=== PATIENT | male | born 1965 | race Asian ===

== ENCOUNTER 2017-03-19 17:20 | Inpatient (IN) | payer OTHER ==
--- NOTE | ~2017-03-19 | CO ---
Unit #: [id number] #: [id number] Patient: PARISH HANNA [id number] [address] [address] [id number] I MR#: [id number] NAME: PARISH HANNA ROOM: 09917 Age: 51 Sex: M Admission Date: 03/19/2017 : 1965 Attending Physician: Poornima Singh M.D. Primary Care Physician: Judah Trujillo Consultation Date: 03/20/2017 CONSULTATION REPORT ADMITTING PHYSICIAN Dr. Echevarria. CONSULTING PHYSICIAN Dr. Solo Conway. REASON FOR CONSULTATION Right septic knee. HISTORY OF PRESENT ILLNESS The patient is a pleasant 51-year-old male who we were asked to see in consultation by Dr. Echevarria for right knee infection. The patient reports this has been going on for two days. The patient has not suffered any trauma. The patient did have a left knee infection back in 2013, which was washed out by Dr. Beal. The patient admits the pain in his right knee is a 10 on a scale of 1-10. The patient struggles with ambulation. The patient denies any numbness, tingling, fever, or chills. PAST MEDICAL HISTORY/SURGICAL HISTORY History of left knee arthroscopic I and D by Dr. Beal. CURRENT MEDICATIONS None. ALLERGIES No known drug allergies. Not allergic to latex. SOCIAL HISTORY Admits to tobacco, occasional alcohol. FAMILY HISTORY Noncontributory. REVIEW OF SYSTEMS GENERAL: He denies any fever or chills. HEENT: Denies any double vision or blurred vision. LUNGS: He denies any shortness of air or chronic cough. CARDIOVASCULAR: Denies any chest pain, irregular heart beat. ABDOMEN: Denies nausea, vomiting. MUSCULOSKELETAL: Admits to right knee pain. EXTREMITIES: Denies any clubbing, cyanosis but admits to large effusion in his right knee. NEUROLOGIC: Denies any numbness or tingling. Unit #: [id number] #: [id number] Patient: PARISH HANNA PHYSICAL EXAMINATION GENERAL: The patient is well developed, well nourished, no acute distress. He does complain of right knee pain. VITAL SIGNS: His temperature is 97.5, blood pressure 128/87, heart rate 71 and regular, respirations 14. HEENT: Normocephalic and atraumatic. PERRLA. Extraocular movements intact. Conjunctivae clear. NECK: Supple. No thyromegaly. LUNGS: Clear to auscultation. No accessory muscle use. Equal expansion bilaterally. CARDIOVASCULAR: S1, S2. ABDOMEN: Soft, nontender, nondistended. Positive bowel sounds. MUSCULOSKELETAL: Gait not appreciated. Examination of the patient's right knee reveals he did have what appeared to be a large effusion. He did have decreased range of motion. There were no masses appreciated. There was some erythema and edema. His medial and lateral ligaments were stable. His ACL and PCL tests were normal. EXTREMITIES: No clubbing, cyanosis, edema other than right knee effusion. SKIN: No rash, lesions, or ulcers. NEUROLOGIC: Limited orthopedic exam. Cranial nerves II-XII grossly intact. DIAGNOSTIC STUDIES LABORATORY: The aspiration from his right knee did show 32,548 total cell count. Eighty seven percent of that was neutrophils. His uric acid was 7.3. Sodium 137, potassium 3.8, chloride 102, CO2 is 22, BUN 15, creatinine 0.9, glucose 137. WBC 11.5, hemoglobin 13.8. Blood cultures so far were negative. IMAGING: X-rays of the patient's right knee did show a large suprapatellar bursa effusion. ASSESSMENT Right knee infection. PLAN The patient has been started on IV antibiotics. Will wait and see how this works for one day. Dr. Callahan or Dr. Donato will review and see the patient tomorrow. Will keep the patient NPO after midnight. Will go ahead and get a consent for a right knee arthroscopic incision and drainage by either Dr. Donato or Dr. Callahan. Will make further recommendations. Dictated by... Vijay Deras P.A.-C- for Will Guzman TD: 03/20/2017 11:52 JOB #: [id number] Unit #: [id number] #: [id number] Patient: PARISH HANNA CONSULTATION REPORT Page 1 of 1 X X CONSULTATION REPORT
--- NOTE | ~2017-03-19 | OR ---
Unit #: [id number] #: [id number] Patient: PARISH HANNA [id number] [address] [address] [id number] Vera MR#: [id number] NAME: PARISH HANNA ROOM: 229 Date of Procedure: 03/22/2017 Admission Date: 03/20/2017 Surgeon: Bill Donato M.D. : 1965 Attending Physician: Poornima Singh M.D. Primary Care Physician: Judah Trujillo OPERATIVE REPORT PREOPERATIVE DIAGNOSIS Right septic knee arthritis. POSTOPERATIVE DIAGNOSIS Right septic knee arthritis. PROCEDURE PERFORMED Right arthroscopic knee incision and drainage. GOLF COURSE ARCHITECT None. ANESTHESIA General with LMA. COMPLICATIONS None. SPECIMENS Culture swabs sent from the right knee fluid. DRAINS Small Hemovac. SURGICAL IMPLANTS None. INDICATION FOR PROCEDURE Mr. Hanna is a 51-year-old male with history of left septic knee arthritis who presented with right knee swelling, pain, erythema, elevated white count. Aspiration had been performed with elevated white count noted from the right knee. Crystals negative and cultures negative as well. However, the patient was on antibiotics. Due to increasing white count and no improvement in symptoms, it was felt that surgical I and D may prevent complications of septic arthritis. Risks and benefits discussed with the patient over the phone with the clinical courier on the morning of 03/22/2017 before surgery. The patient wished to proceed with surgical intervention after discussion. We will plan for a right knee arthroscopic I and D. Risks include, but not limited to infection, bleeding, nerve injury, blood clots, risks associated with anesthesia, need for further surgery, persistent pain, and possibly . Unit #: [id number] #: [id number] Patient: PARISH HANNA DESCRIPTION OF PROCEDURE On 03/22/2017, the patient was seen in the preoperative holding area, where his surgical site was marked. The patient was on scheduled antibiotics. The patient was taken to the operating room and provided general anesthesia. Right lower extremity was prepped and draped in typical sterile fashion. Time-out performed confirming the correct surgical site and procedure. At this point, an anterolateral portal was created with an 11-blade. A blunt trocar was carefully inserted in the knee. Approximately 50 mL of joint fluid removed and placed in a sterile specimen cup. Culture swabs were sent from this. Next, the arthroscope was inserted in the knee. A superolateral portal was created into the suprapatellar pouch. A drain was placed there. Approximately 6 L of normal saline containing bacitracin was pulsed through the knee. There was some synovitis noted as well as what appeared to be calcifications in the joint. This certainly could be secondary to gout. Articular cartilage was intact. After the fluid had been pulsed through the wound, a small Hemovac drain was placed through the superolateral wound and into the joint. The 2 wounds were closed with 3-0 nylon suture, Xeroform, 4x4s, ABD, cast padding, Dm bandage were placed. The patient was subsequently awakened from general anesthesia in stable condition and taken to PACU postoperatively. POSTOPERATIVE PLAN We will check cultures. He will be weightbearing as tolerated. He likely will need to be treated for gout if symptoms do not improve. Dictated by... Bill Donato M.D. SUSY/sherin TD: 03/23/2017 02:08 JOB #: [id number] OPERATIVE REPORT Page 1 of 1 X X PROCEDURE OPERATIVE NOTE
--- NOTE | ~2017-03-19 | HP ---
Unit #: [id number] #: [id number] Patient: PARISH HANNA [id number] [address] [place], [place] [address] [id number] I MR#: [id number] NAME: PARISH HANNA ROOM: 229 Age: 51 Sex: M Admission Date: 03/20/2017 : 1965 Attending Physician: Poornima Singh M.D. Primary Care Physician: Judah Trujillo M.D. HISTORY AND PHYSICAL CHIEF COMPLAINT Left knee pain. HISTORY OF PRESENT ILLNESS Patient is a 51-year-old Latvian male who presented to the emergency department due to right knee pain. Patient states that pain has been ongoing for two weeks and rates pain as 10/10, unable to ambulate. Patient states that there is also redness with the pain, denied fevers or chills with this pain. Patient states back in 2013 he had similar episode of pain in the left knee where it had required incision and drainage and four weeks of IV antibiotics. Patient states that since then he had no problem with the left knee except some crepitus with ambulation and the right knee pain started two days prior to admission. In the emergency department patient was evaluated. Chem-7 was unremarkable. CBC with slightly elevated white count of 11,500. Patient was seen by Orthopedics who had suggested to have joint aspiration. Currently the synovial fluid appears cloudy with too numerous to count white blood cells. Patient has been afebrile. Vitals have been stable. Patient is started on empiric antibiotic with vancomycin and Rocephin. The following day after being evaluated by Orthopedics, it was felt by Orthopedics that patient currently does not need incision and drainage of the knee and will continue with empiric antibiotics and continue to monitor. Patient also had other lab workup including a CRP which is slightly elevated at 3.1, sed rate was 21, a uric acid level of 7.3. PAST MEDICAL HISTORY None. PAST SURGICAL HISTORY Left knee incision and drainage in 2003 for septic right knee arthritis. CURRENT MEDICATIONS None. ALLERGIES No known drug allergies. SOCIAL HISTORY Patient admits to smoking approximately one pack every other day. Patient states that he drinks beer occasionally but states that he never binge drinks. Patient currently is unemployed. Patient admits to inhaling marijuana but states that he has not done so in the past two years, denied any IV drug use. Unit #: [id number] #: [id number] Patient: PARISH HANNA FAMILY HISTORY Family history is noncontributory. REVIEW OF SYSTEMS Twelve review of systems were reviewed. Patient reports pain and redness in the left knee and worsened with mobility, otherwise the symptom review is negative. PHYSICAL EXAMINATION GENERAL: Patient is a well-developed well-nourished male with significant pain in the right knee with movement. VITAL SIGNS: Pulse of 71, respiratory rate of 14, blood pressure is 128/87, oxygen is 98% on room air. HEAD, EYES, EARS, NOSE AND THROAT: Clear. PERRLA. LUNGS: Clear to auscultation bilaterally. HEART: Regular rate and rhythm. ABDOMEN: Nondistended. Nontender. No guarding. No rebound. MUSCULOSKELETAL: Patient had full range of motion on the left knee but significant pain with slight abduction and adduction on the right knee. The patient has full range of motion in the hip, full range of motion in the bilateral feet, dorsiflexion and plantar flexion and extension. DIAGNOSTIC STUDIES IMAGING: Patient had a three-view x-ray of the knee. Impression: Large suprapatellar bursa effusion without lipohemarthrosis, fracture or loose body. No joint space loss seen. LABORATORY: BMP: Glucose 137, BUN 15, creatinine 0.9, sodium 134, potassium 3.8, chloride 102, CO2 22, calcium 8.7, uric acid level 7.3. CBC with WBC of 11.5, RBC 4.54, hemoglobin 13.8, hematocrit is 41.2, MCV is 90.7, MCH is 30.4, MCHC is 33.5, RDW 13.0, platelets 251 and MPV 8.7. Please note that patient's uric acid levels is 7.3. C-reactive protein is 3.1. Sed rate is 21. ASSESSMENT AND PLAN 1. Right septic knee: Is being followed by Orthopedic Surgery. No surgery per their assessment at this time. Will continue with IV antibiotic. Follow up on synovial fluid and blood culture. 2. Acute gouty arthritis: Will be treating with colchicine and pain medicine if needed. 3. History of left-sided knee septic arthritis in 2013. 4. Tobacco usage: Suggest cessation. 5. Low back pain with previous history of illicit drug use: Will be assessing an MRI of his back to rule out any abscess. Dictated by Gabe Barton PA-C for Will Mondragon/xu TD: 03/20/2017 17:02 JOB #: [id number] Unit #: [id number] #: [id number] Patient: PARISH HANNA HISTORY AND PHYSICAL Page 1 of 1 X X HISTORY AND PHYSICAL
--- NOTE | ~2017-03-19 | CO ---
Unit #: [id number] #: [id number] Patient: PARISH HANNA [id number] [address] [place], [place] [address] [id number] I MR#: [id number] NAME: PARISH HANNA ROOM: 229 Age: 51 Sex: M Admission Date: 03/20/2017 : 1965 Attending Physician: Poornima Singh M.D. Primary Care Physician: Judah Trujillo Consultation Date: 03/22/2017 CONSULTATION REPORT REASON FOR CONSULTATION Septic left knee. HISTORY OF PRESENT ILLNESS This is a 51-year-old male who came to the emergency room due to right knee pain. Patient reports he had difficulty walking with some associated swelling; however, he denied any fever or chills and reports that he is doing fine. Patient's workup included and arthrocentesis with approximately 34,000 nucleated cells, 87% of which were neutrophils with no crystals seen. Patient's is status post arthroscopic I and D today and cultures are currently pending and patient is up walking around with minimal difficulty. He is, however, using crutches. Patient is on vancomycin and Rocephin and ID was asked to evaluate for possible septic knee. PAST MEDICAL HISTORY None; however, we did see the patient several years ago for a similar incident on the opposite side of the knee. ALLERGIES No known allergies. MEDICATIONS Vancomycin and Rocephin. For other medications, please refer to patient's MAR. SOCIAL HISTORY Positive tobacco. Occasional alcohol. No IV drug abuse. REVIEW OF SYSTEMS No fever or chills. No shortness of breath. No chest pain, nausea, vomiting, or diarrhea. He reports minimal pain in his right knee at this time. PHYSICAL EXAMINATION VITAL SIGNS: Temperature is 98.2 with a T max. of 100, pulse is 69, blood pressure 121/77, and respiratory rate is 18. GENERAL: This no apparent distress male was resting in the bed comfortably after he was walking down the hallway with the use of his crutches. HEENT: His pupils are equal. NECK: Supple. CARDIOVASCULAR: S1 and S2 regular rate and rhythm. PULMONARY: Clear to auscultation bilaterally with no wheezes or rhonchi Unit #: [id number] #: [id number] Patient: PARISH HANNA noted. ABDOMEN: Positive bowel sounds, soft, and nontender. EXTREMITIES: Right knee is currently in an OR dressing with a ABRAHAN drain in place. There is no significant edema and there is positive warmth in his lower extremities. DIAGNOSTIC STUDIES LABORATORY: BUN 11, creatinine 0.9, sodium 131, potassium 3.9, chloride 102, CO2 22, and bilirubin 0.4. LFTs were not done this admission. Fluid culture from the knee showed 32,548 nucleated cells with 87% neutrophils and no crystals seen on exam. White blood cell count 8.6, which is improved from 13.7; hemoglobin 14.2; hematocrit 42.1; and platelets 277. Knee cultures currently pending from today. Synovial fluid from the 4th is negative. Blood cultures are currently negative to date. IMPRESSION This is a 51-year-old male who presented with knee pain for several days, status post arthrocentesis at the bedside several days ago with negative cultures, but negative crystals also. Analysis was not consistent with septic arthritis. Patient is now status post arthroscopic I and D. Cultures are currently pending. At this time, suspicion for gout is high; however, until cultures are known, will continue vanc and ceftriaxone. Thank you for allowing us to participate in the care of this patient. Further recommendations to follow pending patient's clinical course. Dictated by... Remington AguileraPChepeRChepeN. for Will Hernandez/emily TD: 03/22/2017 10:50 JOB #: [id number] CONSULTATION REPORT Page 1 of 1 X X CONSULTATION REPORT
--- NOTE | ~2017-03-19 | A ---
[facility] Nutrition Therapy DATE: 03/22/17 Patient: PARISH HANNA Physician: MAIK Address: [address] [place] [address] ROAD Room/Bed: [address] [place] [address], Zip: [place] [address] Admit Date: 03/20/17 Date of : [birth year] Height: 5 2 Weight: 138 62.59 NUTRITIONAL ASSESSMENT: REASON: CONSULT RE: GOUT DIET EDUCATION HT: 5'2", WT: 137# (62 KG), BMI: 25.1 RD PROVIDED WRITTEN AND VERBAL GOUT DIET EDUCATION. OF NOTE, PT IS VIATNAMESE, RD COMMUNICATED INFORMATION VIA PHONE SOC ANALYST AND PROVIDED WRITTEN VIATNAMESE DIET EDUCATION. RD EXPLAINED IMPORTANCE OF FOLLOWING SPECIFIC DIET PLAN WELL LISTED FOODS TO AVOID/LIMIT AND FOODS TO EAT MORE OFTEN. PT DEMONSTRATED UNDERSTANDING OF THE TOPIC. PT REPORTED NO DIET QUESTIONS AT THIS TIME. RD TO REMAIN AVAILABLE FOR FURTHER QUESTIONS. RECOMMENDATIONS: 1. RE-CONSULT RD IF FURTHER DIET EDUCATION REQUESTED RD WILL F/U PER PROTOCOL Surinder Matt, MS, RD, LD [facility] cc: client file
--- NOTE | ~2017-03-19 | CR173 ---
[facility] A Service of [facility] & [facility] RADIOLOGY TEXT RESULTS PATIENT: PARISH HANNA LOCATION: CEDOF : [birth year] UNIT #: [id number] AGE: [address]: Poornima Singh MD SEX: M ORDER DR: [id number] [facility] [address] [facility]. [place], [place] [address] [id number] I MR#: [id number] Acc #: [id number] NAME: PARISH HANNA : 1965 SEX: M STUDY DATE/TIME: 03/19/2017 19:58 UNIT: CEDOF ROOM: 14507 STUDY DESCRIPTION: CR Knee 3 Views Rt Attending Physician: Mal Echevarria M.D. Ordering Physician: Ishan Chun Aprn Primary Care Physician: Judah Trujillo MEDICAL IMAGING REPORT This report is preliminary unless electronic signature is present EXAM Right knee 3 views 03/19/2017 1958 hours HISTORY 51-year-old man with anterior right knee pain for 2 days. No known injury. COMPARISON None. FINDINGS AP, lateral and sunrise views suggest a large suprapatellar bursa effusion without lipohemarthrosis. Joint space appears normal. There is no fracture or loose body. IMPRESSION Large suprapatellar bursa effusion without lipohemarthrosis, fracture or loose body. No joint space loss seen. Dictated by... Drea Gomez M.D. THIS IS AN ELECTRONICALLY VERIFIED REPORT Drea Gomez M.D. at 03/20/2017 8:49 AM NELA/flip TD: 03/20/2017 07:48 JOB #: [id number] MEDICAL IMAGING REPORT Page 1 of 1 COPY
--- NOTE | ~2017-03-19 | MR112 ---
[facility] A Service of [facility] & [facility] RADIOLOGY TEXT RESULTS PATIENT: PARISH HANNA LOCATION: C2A 229-01 : [birth year] UNIT #: [id number] AGE: [address]: Poornima Singh MD SEX: M ORDER DR: [id number] [facility] [address] [facility]. [place], [place] [address] [id number] I MR#: [id number] Acc #: [id number] NAME: PARISH HANNA : 1965 SEX: M STUDY DATE/TIME: 03/20/2017 15:18 UNIT: [facility] ROOM: 229 STUDY DESCRIPTION: MR Lumbar WWo Contrast Attending Physician: Poornima Singh M.D. Ordering Physician: Judah Trujillo M.D. Primary Care Physician: Judah Trujillo M.D. MRI CENTER REPORT This report is preliminary unless electronic signature is present. EXAM Lumbar spine MRI with without HISTORY Low-back pain for 2-3 days, prior IV drug use and knee infection, septic arthritis in the knee. Please evaluate for possible lumbar spine infection. No history of cancer or surgery. No history of trauma. TECHNIQUE MRI of the lumbar spine performed prior to and following intravenous administration of 12 mL of MultiHance. COMPARISON STUDIES There is no previous MRI of the lumbar spine. There is a comparison plain film series from 11/18/2015. FINDINGS Spine numbered assuming a very hypoplastic S1-2 intervertebral disc. Sagittal alignment is normal. Bone marrow signal intensity is normal. There is subtle disc desiccation at L2-3 and L5-S1. There is no evidence for diskitis. The conus medullaris terminates at L1 level and is normal. There is nothing to suggest osteomyelitis. There is nothing to suggest an epidural abscess. At L1-2, there is no significant abnormality. At L2-3, there is a minor concentric disc bulge with small Schmorl nodes but there is no canal stenosis. No significant foraminal impingement. At L3-4, there is no significant abnormality. At L4-5, there is minimal posterior disc bulge. Mild effacement of the STS. [facility] A Service of [facility] & [facility] RADIOLOGY TEXT RESULTS PATIENT: PARISH HANNA LOCATION: A 229-01 : [birth year] UNIT #: [id number] AGE: [address]: Poornima Singh MD SEX: M ORDER DR: anterior thecal sac. No canal stenosis. There is mild bilateral inferior foraminal narrowing. At L5-S1, there is a mild broad-based posterior disc bulge with mild effacement of the anterior thecal sac. Mild mass effect on the bilateral-lateral recesses but no significant central canal stenosis. There is mild bilateral foraminal narrowing. Partly seen is a likely tiny of 4 mm left renal cyst. Mild arthritis seen visualized bilateral sacroiliac joints. Following contrast administration, there is no pathologic intracanicular enhancement. There is nothing to suggest arachnoiditis. IMPRESSION 1. Nothing to suggest diskitis, osteomyelitis or epidural abscess lumbar spine. 2. Mild lumbar degenerative changes but no lumbar canal stenosis. Mild foraminal narrowing detailed above. 3. Partially seen is some mild arthritis in the sacroiliac joints. STAT * RESULT Dictated by... Dana Rich M.D. THIS IS AN ELECTRONICALLY VERIFIED REPORT Dana Rich M.D. at 03/20/2017 5:30 PM Neal TD: 03/20/2017 16:43 JOB #: [id number] MRI CENTER REPORT Page 1 of 1 COPY
--- NOTE | ~2017-03-19 | DS ---
Unit #: [id number] #: [id number] Patient: PARISH HANNA [id number] [address] [place], [place] [address] [id number] MR#: [id number] NAME: PARISH HANNA ROOM: 229 Age: 51 Sex: M Admission Date: 03/20/2017 : 1965 Discharge Date: 03/23/2017 Attending Physician: Poornima Singh M.D. Primary Care Physician: Judah Trujillo DISCHARGE SUMMARY DISCHARGE DIAGNOSES 1. Septic gouty arthritis of the right knee. 2. 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 3. Tobacco abuse. 4. History of remote substance abuse, denied intravenous drug use. CONSULTANTS 1. Orthopedic surgery - Dr. Conway and Dr. Donato. 2. Infectious Disease - Dr. Meneses. PROCEDURES The patient had a right knee arthroscopic incision and drainage by Dr. Donato on 03/22/17 and had a drain placed in there. Per Dr. Donato's note, the synovitis was noted to be calcified in the joint. Could certainly be secondary to gout. Articular cartilage was intact. IMAGING The patient had three view knee x-ray done on 03/19/17. Impression - large suprapatellar bursa effusion without lipohemarthrosis, fracture or loose body. No joint space loss seen. Lumbar MRI with and without contrast on 03/20/17. Impression - nothing to suggest discitis, osteomyelitis or epidural abscess of lumbar spine. Mild lumbar degenerative changes but no lumbar canal stenosis. Mild foraminal narrowing detailed above. Partially seen is some mild arthritis in the sacroiliac joints. LABORATORY BMP - glucose 91, BUN 10, creatinine 0.8, sodium 136, potassium 3.8, chloride 105, CO2 24, calcium 8.9. CBC with WBC of 5.4, RBC 4.3, hemoglobin 13.2, hematocrit 39.3, MCV 91.4, MCH 30.7, MCHC 33.6, RDW 12.5, platelets 272, MPV 8.9. HOSPITAL COURSE The patient is a 51-year-old, Afghan predominantly speaking, male who does speak some [place], who presented to the emergency department due to left knee pain. The patient states that symptoms started about two weeks prior to admission and rates it as 10 out of 10. It was debilitating and unable to ambulate on it and had to use crutches. The patient had the same symptoms on the left knee in 2014 where he had undergone arthroscopy of that knee and required four weeks of IV antibiotics following that. In the emergency department, workup includes a slightly elevated white count Unit #: [id number] #: [id number] Patient: CYNDI,PARISH of 11,500. He was seen by orthopedic surgery and had undergone joint aspiration of the knee in the emergency department where synovial fluid reveals cloudy with too numerous to count blood cells. CRP was elevated at 3.1, sed rate was 21. Uric acid level was slightly elevated at 7.3. Orthopedic surgery had recommended a onetime dose of colchicine that was given in the emergency department and had also recommended to continue with IV antibiotic. At my evaluation the next day, the patient still had severe debilitating pain in his left knee. Also, he tells me that the swelling had much reduced. On review of the synovial fluid, he had a 32,000 count which was less than his 52,000 back in 2014. When asked for crystal exam, they feel that there were no crystals seen. Therefore, have continued patient with IV antibiotics for possible septic joint. Infectious disease was asked to see this patient in consultation. At hospital day #2, the patient had low grade fever of 100.0 and an elevated white blood count to the level of 13,700. Therefore, orthopedic surgery had decided to dyspnea on exertion a diagnostic arthroscopy of the right knee and, per Dr. Donato's dictated report, there was truly no purulent discharge seen in the knee and that there were marked calcifications. (1) history - patient does not eat red meat but does like to eat salted fish as well as salted crabs. He does admit to consuming beer every now and then as well. With this finding from OR as well as patient's history and the fact that there is no growth on blood, bacteria count is not exceptionally high and no growth in the body fluid at this time. Therefore, it is felt by infectious disease and myself that patient likely has gout per history and current workup right now. Therefore, we have decided to stop antibiotics and to treat patient for gout. The patient was discharged home in stable condition. It was stressed by myself and infectious disease to return to the emergency department for re-evaluation should he have a fever of 100.4, severe pain to the left knee or any additional drainage or swelling to the knee. The patient voiced understanding. The patient does not have a primary care physician that he is following at this time. Therefore, I have arranged followup with our [facility] at 10:00 on 03/30. That is next . Will also be following patient's synovial fluid for any culture growth. If no further growth is (2) and no other overt signs of infection, patient will continue treatment of gout and will require no other further antibiotics. If this patient does present with similar symptoms in the future, my recommendation is to treat patient for gout instead of infectious septic arthritis. DISPOSITION Stable to home. FOLLOWUP 1. Follow up with the [facility] clinic on March 30 at 10:00. 2. Follow up with orthopedic surgery in ten days. Patient was given instructions to shower and use weight bearing as tolerated. DISCHARGE MEDICATIONS 1. Tylenol 650 mg as needed for mild pain. 2. Solu-Medrol Dosepak was given. 3. Colchicine 1.2 mg orally on the first day, then 0.6 mg orally for the next four subsequent days following that. Prescription for 30 days Unit #: [id number] #: [id number] Patient: PARISH HANNA was given. Please note - this dictation took 45 minutes including patient education and to coordinate care. Dictated by... Gabe Barton PA-C for Will Mondragon/ammy TD: 03/25/2017 14:20 JOB #: [id number] DISCHARGE SUMMARY Page 1 of 1 X X DISCHARGE SUMMARY
[~2017-03-19 17:20] MED LIST: HYDROCODON-ACE1 EAC9 PO; ROCEPHIN IV; VANCOMYCIN1.25 GM/25 IV
[2017-03-19 20:12] LABS: BASOPHIL% 0.3 % (0-2.5); EOSINOPHIL# 0.2 X10e3 (0-0.7); EOSINOPHIL% 1.5 % (0.0-7.0); HEMATOCRIT 41.2 % (38.0-50.0); HEMOGLOBIN 13.8 gm/dL (13.0-16.0); LYMPHOCYTE# 2.1 X10e3 (1.0-3.5); LYMPHOCYTE% 18.6 % (17.0-45.0); MEAN CELL VOLUME 90.7 FL (83-96); MEAN CORPUSCULAR HEMOGLOBIN 30.4 PG (28-34); MEAN CORPUSCULAR HGB CONC 33.5 g/dL (30-36); MEAN PLATELET VOLUME 8.7 FL (6.5-11.5); MONOCYTE# 1.5 X10e3 (0-1.0); MONOCYTE% 12.7 % (3.0-12.0); NEUTROPHIL# 7.7 X10e3 (1.5-7.1); NEUTROPHIL% 66.9 % (40-75); PLATELET COUNT 251 X10e3 (140-420); RED BLOOD COUNT 4.54 X10e (3.90-5.60); WHITE BLOOD COUNT 11.5 X10e3 (4.0-10.5)
[2017-03-19 20:15] LABS: DIFF IND NO
[2017-03-20 01:01] LABS: PROTEIN, BODY FLUID 3.8 gm/dL
[2017-03-20 01:31] LABS: BF CRYSTAL EXAM NO CRYSTALS SEEN; BF TOTAL NUCLEATED CELL COUNT 32548 CMM (0-100); BODY FLUID APPEARANCE CLOUDY; BODY FLUID RBC <10000 CMM; BODY FLUID SOURCE SYNOVIAL
[2017-03-20 02:17] LABS: BUN/CREATININE RATIO 16.66; CALCIUM SERUM 8.7 mg/dL (8.4-10.2); CREATININE SERUM 0.9 mg/dL (0.6-1.4); GLOM FILT RATE Estimated 98.5 mL/min (>60); POTASSIUM 3.8 mmol/L (3.5-5.1)
[2017-03-20 13:40] LABS: BASOPHIL% 0.4 % (0-2.5); EOSINOPHIL# 0.1 X10e3 (0-0.7); EOSINOPHIL% 0.8 % (0.0-7.0); HEMATOCRIT 45.5 % (38.0-50.0); HEMOGLOBIN 15.4 gm/dL (13.0-16.0); LYMPHOCYTE# 1.3 X10e3 (1.0-3.5); LYMPHOCYTE% 11.1 % (17.0-45.0); MEAN CELL VOLUME 91.6 FL (83-96); MEAN CORPUSCULAR HGB CONC 33.8 g/dL (30-36); MEAN PLATELET VOLUME 9.2 FL (6.5-11.5); MONOCYTE# 1.4 X10e3 (0-1.0); MONOCYTE% 11.6 % (3.0-12.0); NEUTROPHIL# 9.2 X10e3 (1.5-7.1); NEUTROPHIL% 76.1 % (40-75); PLATELET COUNT 278 X10e3 (140-420); RED BLOOD COUNT 4.97 X10e (3.90-5.60); RED CELL DISTRIBUTION WIDTH 12.8 % (11.0-15.5); WHITE BLOOD COUNT 12.1 X10e3 (4.0-10.5)
[2017-03-20 13:56] LABS: DIFF IND NO
[2017-03-20 14:04] LABS: BUN/CREATININE RATIO 13.33; CALCIUM SERUM 9.2 mg/dL (8.4-10.2); CREATININE SERUM 0.9 mg/dL (0.6-1.4); GLOM FILT RATE Estimated 98.5 mL/min (>60); POTASSIUM 3.8 mmol/L (3.5-5.1)
[2017-03-21 05:15] LABS: HEMATOCRIT 41.4 % (38.0-50.0); MEAN CELL VOLUME 90.8 FL (83-96); MEAN CORPUSCULAR HEMOGLOBIN 30.8 PG (28-34); MEAN CORPUSCULAR HGB CONC 33.9 g/dL (30-36); RED BLOOD COUNT 4.56 X10e (3.90-5.60); RED CELL DISTRIBUTION WIDTH 12.8 % (11.0-15.5); WHITE BLOOD COUNT 13.7 X10e3 (4.0-10.5)
[2017-03-21 05:53] LABS: CALCIUM SERUM 9.2 mg/dL (8.4-10.2); CREATININE SERUM 0.9 mg/dL (0.6-1.4); GLOM FILT RATE Estimated 98.5 mL/min (>60); POTASSIUM 3.7 mmol/L (3.5-5.1)
[2017-03-21 18:23] LABS: AMPHETAMINE NEG (NEG); BARBITURATES NEG (NEG); BENZODIAZEPINES NEG (NEG); COCAINE NEG (NEG); MARIJUANA NEG (NEG); OPIATES NEG (NEG); TRICYCLIC ANTIDEPRESSANTS NEG (NEG); U METHADONE NEG (NEG)
[2017-03-22 04:43] LABS: HEMATOCRIT 42.1 % (38.0-50.0); HEMOGLOBIN 14.2 gm/dL (13.0-16.0); MEAN CELL VOLUME 91.3 FL (83-96); MEAN CORPUSCULAR HEMOGLOBIN 30.8 PG (28-34); MEAN CORPUSCULAR HGB CONC 33.7 g/dL (30-36); MEAN PLATELET VOLUME 9.1 FL (6.5-11.5); RED BLOOD COUNT 4.61 X10e (3.90-5.60); WHITE BLOOD COUNT 8.6 X10e3 (4.0-10.5)
[2017-03-22 05:34] LABS: BUN/CREATININE RATIO 12.22; CREATININE SERUM 0.9 mg/dL (0.6-1.4); GLOM FILT RATE Estimated 98.5 mL/min (>60); POTASSIUM 3.9 mmol/L (3.5-5.1)
[2017-03-23 06:39] LABS: BUN/CREATININE RATIO 12.5; CALCIUM SERUM 8.9 mg/dL (8.4-10.2); CREATININE SERUM 0.8 mg/dL (0.6-1.4); GLOM FILT RATE Estimated 103.5 mL/min (>60); POTASSIUM 3.8 mmol/L (3.5-5.1)
[2017-03-23 06:49] LABS: BASOPHIL% 0.6 % (0-2.5); EOSINOPHIL# 0.2 X10e3 (0-0.7); EOSINOPHIL% 4.5 % (0.0-7.0); HEMATOCRIT 39.3 % (38.0-50.0); HEMOGLOBIN 13.2 gm/dL (13.0-16.0); LYMPHOCYTE# 1.1 X10e3 (1.0-3.5); LYMPHOCYTE% 20.4 % (17.0-45.0); MEAN CELL VOLUME 91.4 FL (83-96); MEAN CORPUSCULAR HEMOGLOBIN 30.7 PG (28-34); MEAN CORPUSCULAR HGB CONC 33.6 g/dL (30-36); MEAN PLATELET VOLUME 8.9 FL (6.5-11.5); MONOCYTE# 1.2 X10e3 (0-1.0); MONOCYTE% 21.6 % (3.0-12.0); NEUTROPHIL# 2.9 X10e3 (1.5-7.1); NEUTROPHIL% 52.9 % (40-75); PLATELET COUNT 272 X10e3 (140-420); RED CELL DISTRIBUTION WIDTH 12.5 % (11.0-15.5); WHITE BLOOD COUNT 5.4 X10e3 (4.0-10.5)
[2017-03-23 07:06] LABS: DIFF IND YES
[2017-03-23 08:09] LABS: ANISOCYTOSIS SL; PLATELET ESTIMATE NORMAL (NORMAL); RBC NORMAL YES
[2017-03-23] MEDS ORDERED: TYL325 PO (18:32)
[2017-03-23] MEDS ORDERED: PREDNISONE10 M1 PO (18:32)
[2017-03-23] MEDS ORDERED: COLCHICINE PO (18:33)
== END 2017-03-23 21:00 | disposition home or self-care (01) | DRG 487 ==
LOC: CED 17:20 → CFTX 17:20 → CED 19:18 → C2A 03-20 03:40 → CEDOF 03-20 03:40 → CED 03-20 03:53 → C2A 03-20 03:53 → CEDOF 03-20 03:53 → C2A 03-20 16:05 → CEDOF 03-20 16:05 → C2A 03-23 21:00
PROVIDERS: Emergency Medicine; Family Medicine; Nurse Practitioner Family; Physician Assistant Medical
PROC: 0S9D3ZZ Drainage of Left Knee Joint, Percutaneous Approach (ICD-10-PCS; principal; 2017-03-20)
PROC: 0S9D00Z Drainage of Left Knee Joint with Drainage Device, Open Approach (ICD-10-PCS; 2017-03-22)
DX: M00.861 Arthritis due to other bacteria, right knee (principal); M10.9 Gout, unspecified; F17.210 Nicotine dependence, cigarettes, uncomplicated; Z71.6 Tobacco abuse counseling; M54.5 Low back pain
CPT/HCPCS: 36415; 72158; 73562; 80048; 80202; 80307; 82945; 83605; 84157; 84550; 85025; 85027; 85652; 86140; 86592; 87040; 87070; 87075; 87205; 89051; 89060; 99285; A9577; J0696; J1650; J1885; J2250; J2270; J2765; J3370